=== PATIENT | female | born 1950 | race Caucasian/White ===

== ENCOUNTER → 2018-01-18 10:10 | Outpatient (CLI) | payer MEDICARE, OTHER, SELFPAY ==
--- NOTE | 2018-01-18 | DI.MG.S_ITS ---
BILATERAL DIGITAL SCREENING MAMMOGRAM 3D/2D WITH CAD: 01/18/2018 CLINICAL: Routine screening. Comparison is made to exams dated: 03/05/2015 mammogram, 09/26/2012 mammogram, and 04/03/2010 mammogram - [facility]. The tissue of both breasts is predominantly fatty. Current study was also evaluated with a Computer Aided Detection (CAD) system. No significant masses, calcifications, or other findings are seen in either breast. There has been no significant interval change. IMPRESSION: NEGATIVE There is no mammographic evidence of malignancy. A 1 year screening mammogram is recommended. This exam was interpreted at Station ID: [id number]. NOTE: For mammograms, a report in lay terms will be sent to the patient. Approximately 15% of breast malignancies will not be visualized mammographically. In the management of a palpable breast mass, a negative mammogram must not discourage biopsy of a clinically suspicious lesion. Electronically Signed By: Anila fuentes/bill:01/18/2018 11:16:59 letter sent: Normal Exam ACR BI-RADS Category 1: Negative 3341F
== END ==
PROVIDERS: PCP Internal Medicine; Visit Provider Internal Medicine
DX: Z12.31 Encounter for screening mammogram for malignant neoplasm of breast (principal); M81.0 Age-related osteoporosis without current pathological fracture; Z78.0 Asymptomatic menopausal state; Z82.62 Family history of osteoporosis
CPT/HCPCS: 77063; 77067; 77080

== ENCOUNTER → 2019-11-24 11:29 | Outpatient (CLI) | payer MEDICARE, OTHER, SELFPAY ==
[2019-11-24 12:09] LABS: Add Manual Diff / Slide Review NO; Basophils Absolute Auto 0 /uL (0-100); Basophils Percent Auto 0.6 % (0-2); Eosinophils Absolute Auto 100 /uL (0-450); Eosinophils Percent Auto 1.9 % (2-4); Hematocrit 39.1 % (36-46); Hemoglobin 12.9 g/dL (12.0-16.0); Lymphocytes Absolute Auto 3100 /uL (1100-4500); Lymphocytes Percent Auto 45.7 % (25-40); Mean Corpuscular Hemoglobin 31.2 PG (26-34); Mean Corpuscular Volume 94.4 fL (80-100); Monocytes Absolute Auto 300 /uL (0-900); Monocytes Percent Auto 4.5 % (3-14); Neutrophils Absolute Auto 3200 /uL (1500-7000); Neutrophils Percent Auto 47.3 % (50-75); Platelet Count 231 X10^3/uL (150-400); Red Blood Cell Count 4.14 X10^6/uL (4.0-5.2); Red Cell Distribution Width 12.9 % (11.6-14.8); White Blood Cell Count 6.9 X10^3/uL (4.5-11.0)
[2019-11-24 12:31] LABS: Alanine Aminotransferase 19 IU/L (<35); Albumin 4.1 g/dL (3.5-5.0); Albumin Globulin Ratio 1.3 (1.0-2.8); Alkaline Phosphatase 48 U/L (38-126); Aspartate Aminotransferase 27 IU/L (14-36); Bilirubin Total 0.7 mg/dL (0.2-1.3); Blood Urea Nitrogen 15 mg/dL (7-17); Carbon Dioxide 30 mmol/L (22-32); Chloride 104 mmol/L (98-107); Estimated Glomerular Filt Rate > 60.0 mL/min (>60); Globulin 3.2 g/dL (1.7-4.1); Glucose 79 mg/dL (80-110); HEMOLYSIS < 15 (0-50); Potassium 4.2 mmol/L (3.4-5.1); Sodium 140 mmol/L (137-145); Total Protein 7.3 g/dL (6.3-8.2)
== END ==
PROVIDERS: PCP Internal Medicine; Referring Provider Internal Medicine; Visit Provider Physician Assistant
DX: Z01.818 Encounter for other preprocedural examination (principal)
CPT/HCPCS: 36415; 80053; 85025

== ENCOUNTER → 2020-03-10 11:39 | Outpatient (CLI) | payer MEDICARE, OTHER, SELFPAY ==
--- NOTE | 2020-03-10 | DI.MG.S_ITS ---
BILATERAL DIGITAL SCREENING MAMMOGRAM 3D/2D WITH CAD: 03/10/2020 CLINICAL: Routine screening. Comparison is made to exams dated: 01/18/2018 mammogram, 03/05/2015 mammogram, and 09/26/2012 mammogram - [facility]. The tissue of both breasts is predominantly fatty. Current study was also evaluated with a Computer Aided Detection (CAD) system. No significant masses, calcifications, or other findings are seen in either breast. There has been no significant interval change. IMPRESSION: NEGATIVE There is no mammographic evidence of malignancy. A 1 year screening mammogram is recommended. This exam was interpreted at Station ID: [id number]. NOTE: For mammograms, a report in lay terms will be sent to the patient. Approximately 15% of breast malignancies will not be visualized mammographically. In the management of a palpable breast mass, a negative mammogram must not discourage biopsy of a clinically suspicious lesion. Electronically Signed By: Frankie crane/bill:03/10/2020 13:04:21 letter sent: Normal Exam ACR BI-RADS Category 1: Negative 3341F
== END ==
PROVIDERS: PCP Internal Medicine; Referring Provider Internal Medicine; Visit Provider Internal Medicine
DX: Z12.31 Encounter for screening mammogram for malignant neoplasm of breast (principal)
CPT/HCPCS: 77063; 77067

== ENCOUNTER → 2021-12-11 16:22 | Outpatient (CLI) | payer MEDICARE, OTHER, SELFPAY ==
--- NOTE | 2021-12-11 16:24 | DI.MG.S_ITS ---
BILATERAL DIGITAL SCREENING MAMMOGRAM 3D/2D WITH CAD: 12/11/2021 CLINICAL: Routine screening. Comparison is made to exams dated: 03/10/2020 mammogram, 01/18/2018 mammogram, and 03/05/2015 mammogram - [facility]. Both breasts are almost entirely fatty (category a/<25% glandular tissue). Current study was also evaluated with a Computer Aided Detection (CAD) system. No significant masses, calcifications, or other findings are seen in either breast. There has been no significant interval change. IMPRESSION: NEGATIVE There is no mammographic evidence of malignancy. A 1 year screening mammogram is recommended. Based on the Tyrer Cuzick model (a risk assessment model) the patient's lifetime risk is 3.0% and her 10 year risk is 2.3%. According to the ACR, ACS, and NCCN guidelines, an annual breast MRI exam along with mammogram is recommended if the patient's lifetime risk is 20% or greater. This exam was interpreted at Station ID: [id number]. NOTE: For mammograms, a report in lay terms will be sent to the patient. Approximately 15% of breast malignancies will not be visualized mammographically. In the management of a palpable breast mass, a negative mammogram must not discourage biopsy of a clinically suspicious lesion. Electronically Signed By: Bartolome davila/bill:12/11/2021 17:27:15 letter sent: Normal Exam ACR BI-RADS Category 1: Negative 3341F
== END ==
PROVIDERS: Referring Provider Internal Medicine; Visit Provider Internal Medicine
DX: Z12.31 Encounter for screening mammogram for malignant neoplasm of breast (principal)
CPT/HCPCS: 77063; 77067

== ENCOUNTER → 2021-12-23 11:51 | Outpatient (CLI) | payer MEDICARE, OTHER, SELFPAY | PROVIDERS: PCP Internal Medicine; Referring Provider Internal Medicine; Visit Provider Internal Medicine | DX: M81.0 Age-related osteoporosis without current pathological fracture (principal); Z78.0 Asymptomatic menopausal state; K92.9 Disease of digestive system, unspecified; Z79.83 Long term (current) use of bisphosphonates | CPT/HCPCS: 77080 ==

== ENCOUNTER → 2022-09-11 09:45 | Outpatient (CLI) | payer MEDICARE, OTHER, SELFPAY ==
[2022-09-11 10:40] LABS: Cholesterol 251 mg/dL (140-199); HDL Cholesterol 48 mg/dL (40-60); LDL Cholesterol Calculated 162 mg/dL (<100); Triglycerides 206 mg/dL (35-150)
== END ==
PROVIDERS: PCP Internal Medicine; Referring Provider Internal Medicine; Visit Provider Internal Medicine
DX: E78.5 Hyperlipidemia, unspecified (principal)
CPT/HCPCS: 36415; 80061

== ENCOUNTER → 2023-07-08 15:08 | Outpatient (CLI) | payer MEDICARE, OTHER, SELFPAY ==
--- NOTE | 2023-07-08 15:10 | DI.RAD.S_ITS ---
PROCEDURE: XR DEXA AXIAL SKELETON INDICATIONS: ROUTINE SCREENING COMPARISON: [facility], CR, XR DEXA AXIAL SKELETON, 12/23/2021, 12:12. FINDINGS: Lumbar Spine: Bone mineral density 0.723 g/cm2, T score -3.0. Left Hip: Bone mineral density 0.632 g/cm2, T score -2.5. Left Femoral Neck: Bone mineral density 0.47 soft g/cm2, T score -3.4. Right Hip: Bone mineral density 0.589 g/cm2, T score -2.9. Right Femoral Neck: Bone mineral density 0.452 g/cm2, T score -3.6. Fracture Risk Calculation (when applicable): 10-year fracture risk of a major osteoporotic fracture 26% and of a hip fracture 12%. Of note, fracture risk calculation applies only to osteopenia. (T score greater or equal to -1.0 to: NORMAL) (T score from -1.1 to -2.4: OSTEOPENIA) (T score less than or equal to -2.5: OSTEOPOROSIS) IMPRESSION: Osteoporosis. Follow-up guidelines as follows: Osteoporosis: Consider a repeat DEXA and Vertebral Fracture Assessment (VFA) exam in 2 years or sooner if medically necessary, to reassess this patient's status. Osteopenia: Consider a repeat DEXA in 2-3 years to reassess this patient's status, or if there is a new clinical indication. Normal: Consider a repeat DEXA in 5 years or sooner, or if there is a new clinical indication. Dictated by: Frankie Muñoz M.D. on 07/08/2023 at 16:48 Approved by: Frankie Muñoz M.D. on 07/08/2023 at 16:51
--- NOTE | 2023-07-08 15:10 | DI.MG.S_ITS ---
BILATERAL DIGITAL SCREENING MAMMOGRAM 3D/2D WITH CAD: 07/08/2023 CLINICAL: Routine screening. Comparison is made to exams dated: 12/11/2021 mammogram, 03/10/2020 mammogram, and 01/18/2018 mammogram - [facility]. Both breasts are almost entirely fatty (category a/<25% glandular tissue). Current study was also evaluated with a Computer Aided Detection (CAD) system. No significant masses, calcifications, or other findings are seen in either breast. There has been no significant interval change. IMPRESSION: NEGATIVE There is no mammographic evidence of malignancy. A 1 year screening mammogram is recommended. Based on the Tyrer Cuzick model (a risk assessment model) the patient's lifetime risk is 2.7% and her 10 year risk is 2.4%. According to the ACR, ACS, and NCCN guidelines, an annual breast MRI exam along with mammogram is recommended if the patient's lifetime risk is 20% or greater. This exam was interpreted at Station ID: [id number]. NOTE: For mammograms, a report in lay terms will be sent to the patient. Approximately 15% of breast malignancies will not be visualized mammographically. In the management of a palpable breast mass, a negative mammogram must not discourage biopsy of a clinically suspicious lesion. Electronically Signed By: Mike samuel/bill:07/08/2023 17:00:58 letter sent: Normal Exam ACR BI-RADS Category 1: Negative 3341F
== END ==
PROVIDERS: Family Provider Internal Medicine; PCP Internal Medicine; Referring Provider Internal Medicine; Visit Provider Internal Medicine
DX: Z12.31 Encounter for screening mammogram for malignant neoplasm of breast (principal); M81.0 Age-related osteoporosis without current pathological fracture; R92.313 Mammographic fatty tissue density, bilateral breasts
CPT/HCPCS: 77063; 77067; 77080

== ENCOUNTER 2024-01-30 12:12 | Day surgery (SDC) | payer MEDICARE, OTHER, SELFPAY ==
--- NOTE | 2024-01-30 | PATH_ITS ---
[facility] Accession Number: [id number] No. of containers..06 Tissue . 01 Material submitted: . PART A: colon - ILEOCECAL VALVE POLYP PART B: colon - ASCENDING COLON PART C: colon - TRANSVERSE PART D: colon - DESCENDING COLON PART E: colon - SIGMOID PART F: colon - RECTUM . 01 Diagnosis: Part A: ILEOCECAL VALVE POLYP : Tubular adenoma, mildly inflamed. . Part B: ASCENDING COLON: Colonic mucosa with no diagnostic alterations. No active inflammation, granulomas, dysplasia, or malignancy identified. . Part C: TRANSVERSE : Colonic mucosa with no diagnostic alterations. No active inflammation, granulomas, dysplasia, or malignancy identified. . Part D: DESCENDING COLON: Colonic mucosa with no diagnostic alterations. No active inflammation, granulomas, dysplasia, or malignancy identified. . Part E: SIGMOID: Colonic mucosa with no diagnostic alterations. No active inflammation, granulomas, dysplasia, or malignancy identified. . Part F: RECTUM: Chronic colitis, with mild activity. No granulomas, dysplasia, or malignancy identified. . Specimen Comments: The histologic changes are consistent with the clinical history of ulcerative colitis. [facility] 02/01/2024 1736 Local . 01 Electronically signed: . Azael Webb MD, Pathologist NPI- [id number] . 01 Gross description: . A. Received in formalin with two patient identifiers and 1. Ileocecal valve, and consists of a 0.1 cm in greatest dimension, alvarado-yellow soft tissue, which is entirely into cassette A1. . B. Received in formalin with two patient identifiers and 2. Ascending colon, and consists of three alvarado-yellow irregular soft tissues, ranging from 0.1 up to 0.2 cm in greatest dimension, which are entirely submitted into cassette B1. . C. Received in formalin with two patient identifiers and 3. Transverse colon, and consists of four alvarado-yellow irregular soft tissues ranging from 0.1 up to 0.2 cm in greatest dimension, which are entirely submitted into cassette C1. . D. Received in formalin with two patient identifiers and 4. Descending colon, and consists of four alvarado-yellow irregular soft tissues ranging from 0.1 up to 0.2 cm in greatest dimension, which are entirely submitted into cassette D1. . E. Received in formalin with two patient identifiers and sigmoid, are four alvarado yellow irregular soft tissues averaging 0.1 cm in greatest dimension, which are entirely submitted into cassette E1. . F. Received in formalin with two patient identifiers and rectum, and consists of three alvarado-yellow irregular soft tissues averaging 0.2 cm in greatest dimension, which are entirely submitted into cassette F1. ([id number]) /MRV 02/01/2024 1736 Local . 01 Pathologist provided ICD-10: D12.0, K51.90 . 01 CPT . 889421, 727576, 836774, 517303, 328837, [id number] Specimen Comment: A courtesy copy of this report has been sent to [phone] Performed at: [address] [facility] [address], [place], [place] [id number] MD Azael Webb MD Phone: [phone]
[2024-01-30 13:18] VITALS: BP 123/76; PULSE 86; RESP 16; TEMP 36.5
--- NOTE | 2024-01-30 13:22 | P.HP_ITS ---
History of Present Illness History of Present Illness Date Patient Seen: 01/30/24 Time Patient Seen: 13:22 Chief complaint: Colonoscopy Narrative: 73-year-old female with ulcerative colitis here for surveillance colonoscopy. She has not on any maintenance medication. No flare in quite some time. She is quite responsive to the mesalamine enemas. She reports she has a little on the constipation side of the spectrum. [facility] Medical History Migraines (~1954) Rubella (~1954) Polio (~1949) Mumps (~1959) Chicken pox (~1955) Colitis (~1983) Family History Father History of heart disease Mother Lung cancer Grandfather Cancer Grandfather History of heart disease Social History Smoking Status: Never smoker Meds Home Medications and Allergies Home Medications Medication Instructions Recorded Confirmed Type estradiol 0.01% (0.1 mg/gram) 1 g vaginal 3XW 07/14/23 07/14/23 History vaginal cream Allergies Allergy/AdvReac Type Severity Reaction Status Date / Time clindamycin AdvReac Mild Diarrhea Verified 01/30/24 12:44 Review of Systems Review of Systems ROS: Yes All systems reviewed with the patient and are negative except as otherwise documented Exam Const General: cooperative HENMT Head: normal to inspection Eyes General: appearance normal, both eyes and all related structures Neck Neck: normal visual inspection Chest Chest: normal inspection of the chest Resp Effort & Inspection: normal respiratory effort Cardio Rate: regular rate GI Inspection: normal to inspection Skin General: no rashes or lesions noted Neuro General: patient alert and patient awake Extrem General: normal to inspection and no pedal edema Psych Appearance: grossly normal Assessment & Plan Assessment & Plan narrative: 73-year-old female with longstanding ulcerative colitis. Surveillance colonoscopy is pursued today. Time-Based Coding :: [TOTAL MINUTES] spent with patient and on the chart (including review of chart, obtaining history, exam, reviewing outside data, placing orders, documenting exam and treatment plan, and counseling patient) on [DATE].
--- NOTE | 2024-01-30 13:23 | PM.PREOP ---
Pre-operative Note Interval Note History & Physical reviewed/Exam performed by Physician: Yes Changes to H&P: No ASA Class (for procedural sedation): I
[2024-01-30 13:33] VITALS: BMI 24.2
--- NOTE | 2024-01-30 14:34 | PM.OP.COLON ---
Operative Date/Time/Diagnoses Date of procedure: 01/30/24 Time of procedure: 14:34 Pre-op diagnosis: Chronic ulcerative colitis Post-op diagnosis: same Procedure & Clinicians Study performed: Colonoscopy with biopsies Same procedure as scheduled: Yes Indications: Chronic ulcerative colitis Surgeon: Jordin Felix Procedure Notes SCOAP/Timeout: Done Procedure in detail: After the risks and benefits were explained, written and verbal informed consent was obtained. The patient was brought into the procedure room and placed into the left lateral decubitus position. Please see anesthesia note for sedation details. Digital rectal examination was accomplished. The scope was introduced into the patient and advanced under direct visualization to the cecum as identified by the appendiceal orifice and ileocecal valve. The scope was slowly withdrawn to carefully examine the mucosa for any defects or lesions. Comprehensive imaging was accomplished throughout the rectum including the dentate line. The colon was decompressed, the scope was then removed from the patient who tolerated the procedure well. Pediatric colonoscope Bowel prep adequate Scope withdrawal time: 24 minutes Sedation minutes: 34 Complications: none Impression: The terminal ileum was interrogated and appeared visually normal. There was perhaps a 1-2 cm cuff of mild inflammation in the distal rectum. No mass lesions identified. Otherwise there was no evidence of any active inflammation. There were some scattered small pseudopolyps in the descending and transverse. There were a few scattered pseudopolyps in the ascending colon. All of these were quite diminutive. Probable pseudopolyp was addressed with cold forceps on the ileocecal valve and submitted alone. Segmental biopsies were taken from the ascending, transverse, descending, sigmoid, and finally rectum for histopathologic surveillance. The sigmoid colon was moderately tortuous and a little challenging to navigate. Endoscopic diagnosis 1. Mild distal proctitis 2. Scattered colonic small pseudopolyps 3. Tortuous left colon Post-procedure Plan for aftercare: 1. Await histology 2. Repeat colonoscopy for surveillance will likely be suggested for 2 years time. 3. Consider more regular use of Canasa suppositories before bed to control the distal rectal inflammation. Disposition: PACU
[2024-01-30 14:35] VITALS: BP 100/58; PULSE 87; RESP 12; TEMP 36.3; O2SAT 93
[2024-01-30 14:40] VITALS: BP 94/50; PULSE 88; RESP 11; O2SAT 97
[2024-01-30 14:47] VITALS: BP 99/65; PULSE 86; RESP 13; O2SAT 95
[2024-01-30 14:53] VITALS: BP 108/65; PULSE 76; RESP 16; O2SAT 98
== END 2024-01-30 15:15 | disposition home or self-care (01) ==
PROVIDERS: Family Provider Internal Medicine; PCP Internal Medicine; Referring Provider Internal Medicine Gastroenterology; Visit Provider Internal Medicine Gastroenterology
PROC: 0DJD8ZZ Inspection of Lower Intestinal Tract, Via Natural or Artificial Opening Endoscopic (ICD-10-PCS; CPT 45378; principal; 2024-01-30 13:30)
DX: K51.90 Ulcerative colitis, unspecified, without complications (principal); K63.5 Polyp of colon; K62.89 Other specified diseases of anus and rectum; D12.0 Benign neoplasm of cecum
CPT/HCPCS: 45380; J2704

== ENCOUNTER → 2024-09-12 13:54 | Outpatient (CLI) | payer MEDICARE, OTHER, SELFPAY ==
--- NOTE | 2024-09-12 13:55 | DI.MG.S_ITS ---
MM screening mammo BI: 09/12/2024. BI-RADS: 1 CLINICAL: 74-year old female for bilateral screening mammogram. Tyrer-Cuzick lifetime risk of 0.8%. No personal or first-degree family history of breast cancer. PRIOR EXAMS 07/08/2023, 12/11/2021, 03/10/2020, 01/18/2018, MAMMOGRAPHY TECHNIQUE: 2D and 3D (tomosynthesis) digital mammographic views obtained, with additional images as needed for full coverage. Current study was also evaluated with a Computer Aided Detection (CAD) system. DENSITY A. The breasts are almost entirely fatty. MAMMOGRAPHY FINDINGS Bilateral: No suspicious mass, asymmetry, microcalcification, or other abnormality seen. IMPRESSION: * No evidence of malignancy. RECOMMENDATIONS Bilateral * Annual screening mammography. OVERALL ASSESSMENT CATEGORY BI-RADS-1: Negative. The [employer] recommends annual screening mammography beginning at age 40 for women with average risk of breast cancer. ELECTRONICALLY SIGNED: Frankie Muñoz M.D. on 09/12/2024 at 07:31:37 PM PT Interpreting Station ID: [id number]
== END ==
LOC: MAMMO 13:55
PROVIDERS: Family Provider Internal Medicine; PCP Internal Medicine; Referring Provider Internal Medicine; Visit Provider Internal Medicine
DX: Z12.31 Encounter for screening mammogram for malignant neoplasm of breast (principal); R92.313 Mammographic fatty tissue density, bilateral breasts
CPT/HCPCS: 77063; 77067